=== PATIENT | female | born 2000 | race Caucasian/White ===

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

== ENCOUNTER 2021-08-02 21:56 | Emergency (ER) | payer BC ==
[2021-08-02] MEDS ORDERED: Sodium Chloride 0.9% 1,000 ML IV ONE (23:52)
[2021-08-02] MEDS ORDERED: Acetaminophen 325 MG Tab PO ONE (23:56)
[2021-08-03] MEDS ORDERED: Alum Hydrox/Mag Hydrox/Simeth 30 ML, Lidocaine 2% 15 ML PO STA ×2 (00:57)
== END 2021-08-03 01:45 | disposition home or self-care (01) ==
LOC: JD.ED 21:56
DX: R07.9 Chest pain, unspecified (principal); R00.2 Palpitations; I95.1 Orthostatic hypotension
CPT/HCPCS: 36415; 80053; 83735; 84443; 85025; 85379; 93005; 99285; A9270; J7030; 93010